=== PATIENT | female | born 1995 | race Caucasian/White ===

== ENCOUNTER 2022-12-22 19:08 | Emergency (ER) | payer SELFPAY ==
[2022-12-22 19:19] VITALS: BP 128/86; O2SAT 98
--- NOTE | 2022-12-22 19:42 | XRAY Report ---
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 COMPARISON: None. FINDINGS: Bones: No fractures or dislocations. No suspicious bony lesions. Soft tissues: No suspicious soft tissue calcifications or masses. IMPRESSION: No visualized acute fracture or dislocation. However, occult injury cannot be excluded. Recommend gali rt interval imaging follow-up in 7-10 days as clinically indicated for additional evaluation. Reviewed by: Samia Perales MD on 12/22/2022 7:41 PM PST Approved by: Samia Perales MD on 12/22/2022 7:41 PM PST Station ID: [id number]
--- NOTE | 2022-12-22 19:58 | ED Physician Documentation ---
PD HPI UPPER EXT INJURY - Stated complaint Stated Complaint: L FINGER INJ - Chief complaint Chief Complaint: Trauma Ext - Additonal information Additional information: 27-year-old female presents with left thumb injury after accidentally slamming it in the car door about 20 minutes prior to arrival. She has pain at the distal tip of the thumb and the thumb now which radiates up into the wrist. She has not attempted any treatment prior to arrival. No other injuries. 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 - Present Medications Home Medications: Ambulatory Orders Medication Instructions Recorded Confirmed No Known Home Medications 12/22/22 12/22/22 - Allergies Allergies/Adverse Reactions: Allergies Allergy/AdvReac Type Severity Reaction Status Date / Time naproxen Allergy Hives Verified 12/22/22 19:19 - Social History Does the pt smoke?: No Smoking Status: Never smoker Does the pt drink ETOH?: No Does the pt have substance abuse?: No - Immunizations Immunizations are current?: Yes - POLST Patient has POLST: No PD ED PE NORMAL - Vitals Vital signs reviewed: Yes - General General: Alert and oriented X 3, No acute distress, Well developed/nourished - Derm Derm: Normal color, Warm and dry, Other (Subungual hematoma of the left thumbnail as described below) - Extremities Extremities: No deformity, Normal ROM s pain, Other (There is tenderness over the tip of the left thumb. There is a approximately 20% subungual hematoma of the left thumb with tenderness over the thumb nail the nail is attached. There are no lacerations.). No: No tenderness to palpate (Tenderness with palpation of distal left thumb) Results - Vitals Vitals: Vital Signs - 24 hr 12/22/22 19:16 Temperature 36.7 C Heart Rate 91 Respiratory 16 Rate Blood Pressure 128/86 H O2 Saturation 98 Oxygen O2 Source Room air - Rads (name of study) No standard instances Relevant Findings:: See rad report PD Medical Decision Making - ED course Complexity details: reviewed results, considered differential, d/w patient ED course: of the left thumb 27-year-old female presented with left thumb injury as described in HPI. She has tenderness over the distal tip of the left thumb. X- ray was obtained which shows a possible tuft fracture no obvious displaced fracture no open fractures. She does have a subungual hematoma which is approximately 20%. I discussed options including monitoring versus draining. The patient would like to avoid drainage at this time. I therefore recommended that she utilize cool compress for pain, Tylenol and ibuprofen and we will place a splint over the finger to protect the tip of the finger. The patient requested stronger pain medication while here and therefore was given a single dose of oxycodone after discussion of risk versus benefits. She is not breast- feeding or at this time. Patient was splinted and discharged home in stable condition with return precautions. Departure - Departure Disposition: Home, Self Care Clinical Impression: Crushing injury Subungual hematoma of left thumb Qualifiers: Encounter type: initial encounter Qualified Code(s): S60.112A - Contusion of left thumb with damage to nail, initial encounter Condition: Good Instructions: ED Fx Thumb Comments: You have a subungual hematoma (blood under the thumbnail) of the left thumb due to the trauma. You may also have a minor fracture of the distal tip of the thumb. I recommend cool compress, and splint to protect the thumb until it heals. You can use a cool compress to help with pain and take ibuprofen or tylenol as needed. I gave you a single dose of oxycodone here in the ER but additional pain control should be with over the counter medication only. Please follow up with PCP if ongoing pain beyond 1-2 weeks. We did discuss drainage of the thumbnail blood but you would like to wait on this for now which is fine, it typically resolves on its own. Forms: PCP List
[2022-12-22] MEDS: oxyCODONE 5 MG TABLET PO STA (20:03)
== END 2022-12-22 20:11 | disposition home or self-care (01) ==
LOC: ED 19:08
DX: S67.02XA Crushing injury of left thumb, initial encounter (principal); S60.112A Contusion of left thumb with damage to nail, initial encounter; W23.0XXA Caught, crushed, jammed, or pinched between moving objects, initial encounter; Y92.810 Car as the place of occurrence of the external cause
CPT/HCPCS: 99283

== ENCOUNTER 2023-06-11 15:50 | Emergency (ER) | payer SELFPAY ==
--- NOTE | 2023-06-11 17:31 | ED Physician Documentation ---
History of Present Illness - Stated complaint Stated Complaint: PALPITATIONS - Chief complaint Chief Complaint: Cardiac - History obtained from History obtained from: Patient - Additonal information Additional information: This is a 28-year-old G9, P4 with history of 2 ectopic pregnancies, 1 , and 2 miscarriages. She states that when she is she gets palpitations. Her last menses was May 27, few days late and heavy. Starting for the last few days she has had rapid heart rates and feeling like her heart is pounding. There is no associated chest pain or trouble breathing. Denies pedal edema or calf pain. 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 - Present Medications Home Medications: Ambulatory Orders Medication Instructions Recorded Confirmed No Known Home Medications 12/22/22 06/11/23 - Allergies Allergies/Adverse Reactions: Allergies Allergy/AdvReac Type Severity Reaction Status Date / Time naproxen Allergy Hives Verified 06/11/23 15:56 - Social History Does the pt smoke?: No Smoking Status: Never smoker Does the pt drink ETOH?: No Does the pt have substance abuse?: No - Immunizations Immunizations are current?: Yes - POLST Patient has POLST: No PD ED PE NORMAL - Vitals Vital signs reviewed: Yes - General General: Alert and oriented X 3, No acute distress - Neck Neck: Supple, no meningeal sign, No bony TTP - Cardiac Cardiac: RRR, No murmur - Respiratory Respiratory: No respiratory distress, Clear bilaterally - Abdomen Abdomen: Non tender - Neuro Neuro: Alert and oriented X 3, Normal speech Results - Vitals Vitals: Vital Signs - 24 hr 06/11/23 06/11/23 15:56 18:06 Temperature 36.9 C Heart Rate 77 60 Respiratory 16 16 Rate Blood Pressure 122/69 101/65 O2 Saturation 100 98 Oxygen O2 Source Room air - EKG (time done) 1604 EKG releavant findings:: EKG personally interpreted by author of this note. Relevant findings are: Rate: Rate (enter#) (67) Rhythm: NSR [place]: Normal Intervals: Normal [place] QRS: Normal Ischemia: Normal ST segments - Labs Labs: Laboratory Tests 06/11/23 06/11/23 18:00 18:00 WBC 8.0 RBC 3.99 L Hgb 9.8 L Hct 33.2 L MCV 83.2 MCH 24.6 L MCHC 29.5 L RDW 15.8 H Plt Count 316 MPV 9.3 Neut # (Auto) 4.4 Lymph # (Auto) 2.9 [place] # (Auto) 0.5 Eos # (Auto) 0.2 Baso # (Auto) 0.0 Absolute Nucleated RBC 0.00 Nucleated RBC % 0.0 Sodium 137 Potassium 4.0 Chloride 108 Carbon Dioxide 24 Anion Gap 5.0 L BUN 13 Creatinine 0.6 Estimated GFR (MDRD) 119 Glucose 85 Calcium 9.2 Magnesium 1.8 Total Bilirubin 0.3 AST 29 ALT 35 Alkaline Phosphatase 125 H Total Protein 7.1 Albumin 3.9 Globulin 3.2 Albumin/Globulin Ratio 1.2 TSH 1.78 Beta HCG, Quant < 0.6 PD Medical Decision Making - ED course ED course: 28-year-old woman with sensation of rapid palpitations. Here on the monitor she was and remained in normal sinus rhythm. She stated that oftentimes she gets palpitations when she is and needed a blood test to rule that out. Subsequent blood work demonstrated anemia which was discussed with her and follow-up advised, otherwise CMP was negative and serum beta hCG also negative. The patient was counseled as to the diagnosis and need for follow-up. I counseled the patient with regard to signs and symptoms that would necessitate an urgent reevaluation in the emergency department. They understand they are welcome to return at any time if worse or if not improving as expected. This document was made in part using voice recognition software. While efforts are made to proofread this documents, sound alike and grammatical errors may occur. Departure - Departure Disposition: 01 Home, Self Care Clinical Impression: Palpitations Anemia Qualifiers: Anemia type: unspecified type Qualified Code(s): D64.9 - Anemia, unspecified Condition: Good Record reviewed to determine appropriate education?: Yes Instructions: ED Palpitations Comments: You are moderately anemic, specifically your hemoglobin is 9.8 and hematocrit 33.2. I do not have any old values in our record system to compare with so unclear if this is acute or chronic. Regardless reasonable for you to start an [id number] iron supplement and talk with your primary care physician about this. This may be related to some of your fatigue. You are definitely not , and your electrolytes, kidney, liver function, and thyroid function are all normal. You did not have any palpitations while you were here. You should also follow-up with your primary care physician to discuss the palpitations. Here she may want to set you up for a Holter monitor or Zio patch. These are basically cardiac monitors you can wear around for some time to detect any abnormal heart rhythms. Call your doctor to arrange a follow-up appointment, make the next available appointment. In the interim, return anytime if worse or if new symptoms develop. Forms: PCP List Discharge Date/Time: 06/11/23 18:58
[2023-06-11 18:08] LABS: BASOPHILS % (AUTO) 0.5 %; EOSINOPHILS # (AUTO) 0.2 10^3/uL (0.0-0.7); EOSINOPHILS % (AUTO) 1.9 %; HCT - HEMATOCRIT 33.2 % (37.0-47.0); HGB - HEMOGLOBIN 9.8 g/dL (12.0-16.0); LYMPHOCYTES # (AUTO) 2.9 10^3/uL (1.5-3.5); LYMPHOCYTES % (AUTO) 36.9 %; MEAN CORPUSCULAR HEMOGLOBIN 24.6 pg (27.0-31.0); MEAN CORPUSCULAR HGB CONC 29.5 g/dL (32.0-36.0); MEAN CORPUSCULAR VOLUME 83.2 fL (81.0-99.0); MEAN PLATELET VOLUME 9.3 fL (7.9-10.8); MONOCYTES # (AUTO) 0.5 10^3/uL (0.0-1.0); MONOCYTES % (AUTO) 5.7 %; NEUTROPHILS # (AUTO) 4.4 10^3/uL (1.5-6.6); NEUTROPHILS % (AUTO) 54.7 %; PLT - PLATELET COUNT 316 10^3/uL (130-450); RED BLOOD COUNT 3.99 10^6/uL (4.20-5.40); RED CELL DISTRIBUTION WIDTH 15.8 % (12.0-15.0)
[2023-06-11 18:36] LABS: ALBUMIN 3.9 g/dL (3.2-5.5); ALBUMIN/GLOBULIN RATIO 1.2 (1.0-2.2); ALKALINE PHOSPHATASE 125 IU/L (42-121); ALT ALANINE AMINOTRANSFERASE 35 IU/L (10-60); AST ASPARTATE AMINOTRANSFERASE 29 IU/L (10-42); BILIRUBIN,TOTAL 0.3 mg/dL (0.2-1.0); BUN - BLOOD UREA NITROGEN 13 mg/dL (6-20); CALCIUM 9.2 mg/dL (8.5-10.3); CARBON DIOXIDE - CO2 24 mmol/L (21-32); CHLORIDE 108 mmol/L (101-111); CREATININE 0.6 mg/dL (0.6-1.3); GFR - MDRD 119 (>89); GLUCOSE 85 mg/dL (74-104); MAGNESIUM 1.8 mg/dL (1.7-2.3); SODIUM 137 mmol/L (135-145); TOTAL PROTEIN 7.1 g/dL (6.4-8.9)
[2023-06-11 18:43] VITALS: BP 101/65; O2SAT 98
[2023-06-11 18:48] LABS: THYROID STIMULATING HORMONE 1.78 uIU/mL (0.34-5.60)
== END 2023-06-11 18:58 | disposition home or self-care (01) ==
LOC: ED 15:50
DX: R00.2 Palpitations (principal); D64.9 Anemia, unspecified
CPT/HCPCS: 36415; 80053; 83735; 84443; 84702; 85025; 93005; 99283; 99284

== ENCOUNTER 2023-09-20 20:40 | Emergency (ER) | payer MEDICAID ==
[2023-09-20 21:20] LABS: BASOPHILS # (AUTO) 0.1 10^3/uL (0.0-0.1); BASOPHILS % (AUTO) 0.5 %; EOSINOPHILS # (AUTO) 0.2 10^3/uL (0.0-0.7); EOSINOPHILS % (AUTO) 2.4 %; HCT - HEMATOCRIT 36.3 % (37.0-47.0); HGB - HEMOGLOBIN 11.5 g/dL (12.0-16.0); LYMPHOCYTES # (AUTO) 3.3 10^3/uL (1.5-3.5); LYMPHOCYTES % (AUTO) 34.1 %; MEAN CORPUSCULAR HEMOGLOBIN 25.5 pg (27.0-31.0); MEAN CORPUSCULAR HGB CONC 31.7 g/dL (32.0-36.0); MEAN CORPUSCULAR VOLUME 80.5 fL (81.0-99.0); MONOCYTES # (AUTO) 0.6 10^3/uL (0.0-1.0); MONOCYTES % (AUTO) 6.5 %; NEUTROPHILS # (AUTO) 5.5 10^3/uL (1.5-6.6); NEUTROPHILS % (AUTO) 56.2 %; PLT - PLATELET COUNT 367 10^3/uL (130-450); RED BLOOD COUNT 4.51 10^6/uL (4.20-5.40); RED CELL DISTRIBUTION WIDTH 14.1 % (12.0-15.0); WHITE BLOOD COUNT 9.7 x10^3/uL (4.8-10.8)
--- NOTE | 2023-09-20 21:24 | ED Physician Documentation ---
PD HPI SYNCOPE - Stated complaint Stated Complaint: SHAKY/PATEL/DIZZY - Chief complaint Chief Complaint: Neuro - History obtained from History obtained from: Patient - History of Present Illness Timing - onset: Today Duration: Seconds Preceding symptoms: Vision changes, Diaphoresis, Light headed Injury occurred: None Similar symptoms before: Diagnosis (syncope related to ) Recently seen: Emergency Dept (Seen here for palpitations 2 months ago) - Additional information Additional information: LMP 08/26/23 Anahy Yancey is a 28-year-old female who has been 10 times. She has had 4 children and 6 miscarriages. She has had 2 ectopics as well.She presents today with 3 episodes of syncope and states that she has had these previously and that she has been having an issue with dizziness with standing.She states these symptoms have been present previously with and she has had a negative test at home which she states is inadequate as she has had positive quantitative hCG before her urine test was positive Review of Systems Constitutional: denies: Fever Eyes: denies: Decreased vision Ears: denies: Ear pain Nose: denies: Congestion Throat: denies: Sore throat Respiratory: denies: Cough GI: denies: Vomiting, Diarrhea : denies: Dysuria, Frequency Skin: denies: Rash Musculoskeletal: denies: Neck pain, Back pain, Extremity pain Neurologic: reports: Syncope. 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 - Present Medications Home Medications: Ambulatory Orders Medication Instructions Recorded Confirmed No Known Home Medications 12/22/22 06/11/23 - Allergies Allergies/Adverse Reactions: Allergies Allergy/AdvReac Type Severity Reaction Status Date / Time naproxen Allergy Hives Verified 09/20/23 20:44 - Social History Does the pt smoke?: No Smoking Status: Never smoker Does the pt drink ETOH?: No Does the pt have substance abuse?: No - Immunizations Immunizations are current?: Yes - POLST Patient has POLST: No PD ED PE NORMAL - Vitals Vital signs reviewed: Yes (normal ) - General General: Alert and oriented X 3, No acute distress, Well developed/nourished - HEENT HEENT: Atraumatic, PERRL, EOMI - Neck Neck: Supple, no meningeal sign, No bony TTP - Cardiac Cardiac: RRR, No murmur - Respiratory Respiratory: No respiratory distress, Clear bilaterally - Abdomen Abdomen: Normal bowel sounds, Soft, Non tender, Non distended, No organomegaly - Back Back: No CVA TTP, No spinal TTP - Derm Derm: Normal color, Warm and dry, No rash - Extremities Extremities: No deformity, No edema - Neuro Neuro: Alert and oriented X 3, 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, No motor deficit, No sensory deficit, Normal speech Eye Opening: Spontaneous Motor: Obeys Commands Verbal: Oriented GCS Score: 15 - Psych Psych: Normal mood, Normal affect Results - Vitals Vitals: Vital Signs - 24 hr 09/20/23 09/20/23 09/20/23 20:44 23:11 23:12 Temperature 36.8 C 36.7 C Heart Rate 82 74 Heart Rate [ 75 Sitting] Heart Rate [ 74 Standing] Heart Rate [ 83 Supine] Respiratory 16 16 Rate Blood Pressure 129/80 125/82 H Blood Pressure 119/67 [Sitting] Blood Pressure 125/82 H [Standing] Blood Pressure 115/78 [Supine] O2 Saturation 100 99 09/20/23 23:40 Temperature 36.5 C Heart Rate 80 Heart Rate [ Sitting] Heart Rate [ Standing] Heart Rate [ Supine] Respiratory 16 Rate Blood Pressure 104/60 Blood Pressure [Sitting] Blood Pressure [Standing] Blood Pressure [Supine] O2 Saturation 99 Oxygen O2 Source Room air - EKG (time done) 2056 EKG releavant findings:: EKG personally interpreted by author of this note. Relevant findings are: Rate: Rate (enter#) (83) Rhythm: NSR Compare to prior EKG: Changed from prior EKG (06-11-23 rate has increased) Computer interpretation: Agree with computer - Labs Labs: Laboratory Tests 09/20/23 09/20/23 09/20/23 21:06 21:06 22:10 WBC 9.7 RBC 4.51 Hgb 11.5 L Hct 36.3 L MCV 80.5 L MCH 25.5 L MCHC 31.7 L RDW 14.1 Plt Count 367 MPV 9.0 Neut # (Auto) 5.5 Lymph # (Auto) 3.3 [place] # (Auto) 0.6 Eos # (Auto) 0.2 Baso # (Auto) 0.1 Absolute Nucleated RBC 0.00 Nucleated RBC % 0.0 Sodium 137 Potassium 4.3 Chloride 106 Carbon Dioxide 26 Anion Gap 5.0 L BUN 11 Creatinine 0.7 Estimated GFR (MDRD) 100 Glucose 90 Calcium 9.3 Total Bilirubin 0.3 AST 23 ALT 27 Alkaline Phosphatase 119 Troponin I High Sens < 2.3 L Total Protein 7.5 Albumin 4.0 Globulin 3.5 Albumin/Globulin Ratio 1.1 Lipase 18 Beta HCG, Quant < 0.6 Urine Color YELLOW Urine Clarity HAZY Urine pH 6.5 Ur Specific [place] 1.025 Urine Protein NEGATIVE Urine Glucose (UA) NEGATIVE Urine Ketones NEGATIVE Urine Occult Blood NEGATIVE Urine Nitrite NEGATIVE Urine Bilirubin NEGATIVE Urine Urobilinogen 2 H Ur Leukocyte Esterase TRACE H Urine RBC 6-10 H Urine WBC 11-25 H Ur Squamous Epith Cells MOD Squamous H Urine Bacteria Moderate H Ur Microscopic Review INDICATED Urine Culture Comments NOT INDICATED Procedures - IVC sono (time) 2054 Bedside IVC sono: IVC measures (cm) (1.56), Euvolemia PD Medical Decision Making - ED course Complexity details: reviewed results, re-evaluated patient, considered differential, d/w patient, d/w family Reviewed Lab Results: Chemistry showed normal electrolytes normal kidney and liver function and a normal high-sensitivity troponin a quantitative hCG is less than 0.6 urinalysis shows trace leukocyte Estrace 11-25 white blood cells per high-powered field and moderate squamous cells moderate bacteria the specimen did not make the grade for culture. ED course: 28-year-old Anahy Fung presented to the emergency department with episodes of syncope and we evaluated her volume with POCUS and found her to have a normal volume and she had normal orthostatic blood pressures. She had normal electrocardiogram and normal troponin. She felt that she might be and had a negative quantitative hCG. Departure - Departure Disposition: 01 Home, Self Care Clinical Impression: Syncope Qualifiers: Syncope type: unspecified Qualified Code(s): R55 - Syncope and collapse Condition: Stable Instructions: ED Fainting Unkn Cause Comments: Anahy, today we did not find a specific reason for your fainting episodes. We found you had a normal vascular volume electrolytes normal kidney and liver function not . Further evaluation with monitoring is indicated and I have provided a list of physicians in the area for follow-up. Forms: PCP List Discharge Date/Time: 09/20/23 23:46
[2023-09-20 21:42] LABS: TROPONIN I HIGH SENSITIVITY < 2.3 ng/L (2.3-14.8)
[2023-09-20 21:46] LABS: ALBUMIN/GLOBULIN RATIO 1.1 (1.0-2.2); ALKALINE PHOSPHATASE 119 IU/L (42-121); ALT ALANINE AMINOTRANSFERASE 27 IU/L (10-60); AST ASPARTATE AMINOTRANSFERASE 23 IU/L (10-42); BILIRUBIN,TOTAL 0.3 mg/dL (0.2-1.0); BUN - BLOOD UREA NITROGEN 11 mg/dL (6-20); CALCIUM 9.3 mg/dL (8.5-10.3); CARBON DIOXIDE - CO2 26 mmol/L (21-32); CHLORIDE 106 mmol/L (101-111); CREATININE 0.7 mg/dL (0.6-1.3); GFR - MDRD 100 (>89); GLUCOSE 90 mg/dL (74-104); LIPASE 18 U/L (11-82); POTASSIUM 4.3 mmol/L (3.5-4.5); SODIUM 137 mmol/L (135-145); TOTAL PROTEIN 7.5 g/dL (6.4-8.9)
[2023-09-20 22:32] LABS: BILIRUBIN,URINE NEGATIVE (NEGATIVE); GLUCOSE, URINE (UA) NEGATIVE (NEGATIVE); KETONES,URINE (UA) NEGATIVE (NEGATIVE); LEUKOCYTE ESTERASE, URINE TRACE (NEGATIVE); NITRITE,URINE NEGATIVE (NEGATIVE); OCCULT BLOOD,URINE NEGATIVE (NEGATIVE); PH,URINE 6.5 PH (5.0-7.5); PROTEIN,URINE NEGATIVE (NEGATIVE); UROBILINOGEN,URINE 2 E.U./dL (NORMAL)
[2023-09-20 22:34] LABS: CLARITY,URINE HAZY (CLEAR)
[2023-09-20 22:42] LABS: BACTERIA,URINE Moderate /HPF (None Seen); SQUAMOUS EPITHELIAL CELL,UR MOD Squamous (<= Few)
[2023-09-20 23:16] VITALS: O2SAT 99
[2023-09-20 23:54] VITALS: BP 104/60
== END 2023-09-20 23:46 | disposition home or self-care (01) ==
LOC: ED 20:40
DX: R55 Syncope and collapse (principal)
CPT/HCPCS: 36415; 80053; 81001; 81003; 83690; 84484; 84702; 85025; 87086; 93005; 99283; 99284